=== PATIENT | female | born 1965 | race African-American/Black ===

== ENCOUNTER 2016-11-20 17:13 | Emergency (ER) | payer MEDICARE, OTHER ==
[~2016-11-20 17:13] MED LIST: AMB10 PO; AMIT25 PO; AMITIZA8 MCG PO; ASAB PO; COZ50 PO; GLUCOPHAGE1000 MG PO; HCTZ12.5 PO; INSNOV7030 SC; LANTUS SC; LORTAB10 PO; LOTE10 PO; LOTE40 PO; NEUR100 PO; NEUR600 PO; NORCO1 TAB PO; NORV5 PO; NOVOLOG SC; PRILO PO; PROAIR HFA INH; ZANAFLEX 4 MG TA4 MG PO
== END 2016-11-20 18:11 | disposition home or self-care (01) ==
LOC: ER 17:13
DX: M25.512 Pain in left shoulder (principal); J45.909 Unspecified asthma, uncomplicated; I10 Essential (primary) hypertension; E11.9 Type 2 diabetes mellitus without complications; Z88.5 Allergy status to narcotic agent; Z79.82 Long term (current) use of aspirin; Z79.4 Long term (current) use of insulin; Z79.899 Other long term (current) drug therapy
CPT/HCPCS: 73030-LT; 93005; 96372; 99284; J1885

== ENCOUNTER 2017-01-06 19:54 | Emergency (ER) | payer MEDICARE, OTHER ==
[2017-01-06 19:44] LABS: BASOPHILS 0.2 %; BASOPHILS ABSOLUTE 0.03 10/3/uL (0.0-0.16); EOSINOPHILS 1.9 %; EOSINOPHILS ABSOLUTE 0.26 10/3/uL (0.0-0.53); ER CBC TAT 0 Hrs 05 Mins; HEMATOCRIT 35.7 % (36.0-48.0); HEMOGLOBIN 12.8 g/dL (12.0-16.0); IMMATURE GRANULOCYTES 0.3 %; IMMATURE GRANULOCYTES ABSOLUTE 0.04 10/3/uL (0.0-0.11); LYMPHOCYTES 18.8 %; LYMPHOCYTES ABSOLUTE 2.62 10/3/uL (0.67-4.30); MANUAL DIFF NO %; MEAN CORPUS HGB CONC 35.9 g/dL (32.0-36.0); MEAN CORPUSCULAR HEMOGLOB 29.5 pg (26.0-34.0); MEAN CORPUSCULAR VOLUME 82.3 fL (80-100); MONOCYTES ABSOLUTE 0.84 10/3/uL (0.21-1.20); NEUTROPHILS 72.8 %; NEUTROPHILS ABSOLUTE 10.13 10/3/uL (2.02-8.40); PLATELET COUNT 214 10/3/uL (150-400); RBC DISTRIBUTION WIDTH 13.3 % (12.0-16.0); RED CELL COUNT 4.34 10/6/uL (4.0-5.6); WHITE BLOOD CELLS 13.9 10/3/uL (4.5-10.5)
[2017-01-06 19:50] LABS: PARTIAL THROMBO TIME 27.1 SEC (22.5-37.2); PROTIME (NOT ORD) 13.5 SEC (12.0-14.5)
[2017-01-06 20:00] LABS: CALCIUM, SERUM 8.9 MG/DL (8.5-10.4); CHLORIDE, SERUM 98 MMOL/L (96-112); CO2 (CARBON DIOXIDE) 25 MMOL/L (24-34); CREATININE 1.42 MG/DL (0.55-1.02); GFR AFRICAN AMERICAN 50 ML/MIN (>=60); GFR NON AFRICAN AMERICAN 43 ML/MIN (>=60); SODIUM, SERUM 132 MMOL/L (135-148); TROPONIN I <0.02 NG/ML (<0.05)
[2017-01-06 20:01] LABS: BUN (BLOOD UREA NITROGEN) 30 MG/DL (6-23); POTASSIUM, SERUM 3.8 MMOL/L (3.5-5.3)
[2017-01-06 20:02] LABS: GLUCOSE, SERUM 407 MG/DL (60-99)
== END 2017-01-06 23:28 | disposition home or self-care (01) ==
LOC: ER 19:54
PROVIDERS: Physician Assistant
DX: I82.812 Embolism and thrombosis of superficial veins of left lower extremity (principal); E11.9 Type 2 diabetes mellitus without complications; R07.9 Chest pain, unspecified; Z88.5 Allergy status to narcotic agent; Z88.8 Allergy status to other drugs, medicaments and biological substances; Z79.4 Long term (current) use of insulin; Z79.82 Long term (current) use of aspirin; Z79.899 Other long term (current) drug therapy
CPT/HCPCS: 71010; 71275; 80048; 82962; 84484; 85025; 85610; 85730; 93005; 93971; 96374; 99285; A9270-GY; Q9967

== ENCOUNTER 2017-01-08 12:49 | Emergency (ER) | payer MEDICARE, OTHER | END 2017-01-08 16:08 | disposition home or self-care (01) | LOC: ER 12:49 | DX: L02.416 Cutaneous abscess of left lower limb (principal); I10 Essential (primary) hypertension; E11.9 Type 2 diabetes mellitus without complications; J45.909 Unspecified asthma, uncomplicated; F17.200 Nicotine dependence, unspecified, uncomplicated; Z88.5 Allergy status to narcotic agent; Z88.8 Allergy status to other drugs, medicaments and biological substances; Z79.82 Long term (current) use of aspirin; Z79.899 Other long term (current) drug therapy; Z79.4 Long term (current) use of insulin | CPT/HCPCS: 99282; A9270-GY ==